=== PATIENT | male | born 1965 ===

== ENCOUNTER 2022-06-03 00:03 | Emergency (ER) | payer SELFPAY ==
--- NOTE | 2022-06-03 01:20 | Emergency Department Report ---
HPI - General Chief Complaint: Abdominal Pain Time Seen by Provider: 06/03/22 01:03 - [facility] HPI: Room 5 The patient is a 57-year-old male present with chief complaint of urinary retention. Patient states he has been unable to urinate for the past 8 hours complains of severe suprapubic pain. Patient states he has never had this problem before and does not carry any chronic medical conditions ED Past Medical Hx - Past Medical History Previous Medical History?: No - Surgical History Past Surgical History?: No - Family History Family history: no significant - Social History Smoking Status: Current Every Day Smoker (3 cigarettes daily) Substance Use Type: None (Denies illicit drug use), Alcohol (Occasional) ED Review of Systems ROS: Stated complaint: PELVIC PAIN Other details as noted in HPI Constitutional: no symptoms reported Eyes: denies: eye pain ENT: denies: throat pain Respiratory: no symptoms reported Cardiovascular: denies: chest pain Endocrine: no symptoms reported Gastrointestinal: abdominal pain Genitourinary: other (Urinary retention) Musculoskeletal: denies: back pain Neurological: denies: headache Physical Exam - Physical Exam Vital Signs: Vital Signs 06/03/22 00:04 Temperature 98 F Pulse Rate 88 Respiratory 18 Rate Blood Pressure 146/88 O2 Sat by Pulse 100 Oximetry Physical Exam: GENERAL: The patient is well-developed well-nourished male writhing and moaning in pain on the stretcher in obvious distress. [] HEENT: Normocephalic. Atraumatic. Extraocular motions are intact. Patient has moist mucous membranes. NECK: Supple. Trachea midline CHEST/LUNGS: Clear to auscultation. There is no respiratory distress noted. HEART/CARDIOVASCULAR: Regular. There is no tachycardia. There is no gallop rub or murmur. ABDOMEN: Abdomen is soft, suprapubic fullness and discomfort SKIN: There is no rash. There is no edema. There is no diaphoresis. NEURO: The patient is awake, alert, and oriented. The patient is cooperative. The patient has no focal neurologic deficits. The patient has normal speech. GCS 15 MUSCULOSKELETAL: There is no evidence of acute injury. ED Course Vital Signs 06/03/22 00:04 Temperature 98 F Pulse Rate 88 Respiratory 18 Rate Blood Pressure 146/88 O2 Sat by Pulse 100 Oximetry ED Medical Decision Making - Lab Data Result diagrams: 06/03/22 02:06 06/03/22 02:06 Laboratory Tests 06/03/22 06/03/22 06/03/22 01:30 02:06 02:06 WBC 11.0 RBC 5.01 Hgb 15.1 Hct 45.1 MCV 90 MCH 30 MCHC 34 RDW 13.8 Plt Count 303 Lymph % (Auto) 16.3 [place] % (Auto) 9.9 H Eos % (Auto) 0.6 Baso % (Auto) 0.3 Lymph # (Auto) 1.8 [place] # (Auto) 1.1 H Eos # (Auto) 0.1 Baso # (Auto) 0.0 Seg Neutrophils % 72.9 H Seg Neutrophils # 8.0 H Sodium 134 L Potassium 3.3 L Chloride 96.5 L Carbon Dioxide 20 L Anion Gap 21 BUN 7 L Creatinine 0.6 L Estimated GFR > 60 BUN/Creatinine Ratio 12 Glucose 101 H Calcium 8.8 Urine Color Yellow Urine Turbidity Slightly cloudy Specific [place] (Man) 1.020 Ur Protein (Man) 1+ Ur Ketones (Man) Negative Ur Nitrite (Man) Negative Ur Reducing Substances Not Reportable Urine Bilirubin (Man) Negative Urine Ictotest Not Reportable Leukocyte Esterase (Man) Negative Urine WBC (Auto) < 1.0 Urine RBC (Auto) 3.0 Urine RBC (Manual) Trace Urine Mucus Few - Differential Diagnosis Urinary retention, BPH, prostate CA Critical care attestation.: If time is entered above; I have spent that time in minutes in the direct care of this critically ill patient, excluding procedure time. ED Disposition Clinical Impression: Urinary retention Disposition: 01 HOME / SELF CARE / HOMELESS Is pt being admited?: No Does the pt Need Aspirin: No Condition: Stable Instructions: Acute Urinary Retention, Male, [id number] Additional Instructions: Return to the emergency department should you develop worsening symptoms, inability to tolerate food or liquids, high fever or any other concerns Referrals: FRITZ BOYLE MD [Staff Physician] - 3-5 Days (Dr. Boyle is a urologist. Please follow-up with him for further evaluation) Time of Disposition: 03:14 Print Language: MAORI
[2022-06-03 02:16] LABS: Mucus,Urine FEW /HPF; WBC,Urine < 1.0 /HPF (0.0-6.0)
[2022-06-03 02:24] LABS: Color,Urine Yellow (Yellow)
[2022-06-03 03:00] LABS: Basophils % (Auto) 0.3 % (0.0-1.8); Blood Urea Nitrogen 7 mg/dL (9-20); Calcium 8.8 mg/dL (8.4-10.2); Eosinophils # (Auto) 0.1 K/mm3 (0.0-0.4); Eosinophils % (Auto) 0.6 % (0.0-4.3); Hematocrit 45.1 % (35.5-45.6); Hemoglobin 15.1 gm/dl (11.8-15.2); Hemolysis Index 16; Lymphocytes # (Auto) 1.8 K/mm3 (1.2-5.4); Lymphocytes % (Auto) 16.3 % (13.4-35.0); Mean Corpuscular HGB Conc 34 % (32-34); Mean Corpuscular Volume 90 fl (84-94); Monocytes # (Auto) 1.1 K/mm3 (0.0-0.8); Monocytes % (Auto) 9.9 % (0.0-7.3); Platelet Count 303 K/mm3 (140-440); Red Blood Count 5.01 M/mm3 (3.65-5.03); Red Cell Distribution Width 13.8 % (13.2-15.2)
[2022-06-03 03:02] LABS: BUN/Creatinine Ratio 12
[2022-06-03] MEDS ORDERED: POTASSIUM CHLORIDE ER 20 MEQ TAB PO ONE (03:14)
[2022-06-03 06:12] VITALS: BP 142/96
== END 2022-06-03 04:15 | disposition home or self-care (01) ==
LOC: ED 00:03
DX: R33.9 Retention of urine, unspecified (principal); F17.210 Nicotine dependence, cigarettes, uncomplicated; Z72.89 Other problems related to lifestyle
CPT/HCPCS: 36415; 51702; 80048; 81001; 85025; 99284